=== PATIENT | female | born 1950 | race Caucasian/White ===

== ENCOUNTER → 2022-08-31 | Day surgery (SDC) | payer MEDICARE ==
[~2022-08-31] MED LIST: ASPIRIN81 MG PO; CLOPIDOGREL75 MG PO; LIPITOR10 MG PO; LISINOPRIL5 MG PO; METOPROLOL SUCC25 MG PO; MONTELUKAST SOD10 MG PO; NEXIUM40 MG PO; OR PHACO EYE KIT ONE; PANTOPRAZOLE SO40 MG PO; PREOP PHACO EYE KIT ONE; PROZAC20 MG PO; SIMVASTATIN40 MG PO
[2022-08-31 11:32] VITALS: BP 136/76
== END | disposition home or self-care (01) ==
LOC: OR 09:16
PROVIDERS: ATTEND Ophthalmology
DX: H25.12 Age-related nuclear cataract, left eye (principal); M06.9 Rheumatoid arthritis, unspecified; M19.90 Unspecified osteoarthritis, unspecified site; G47.33 Obstructive sleep apnea (adult) (pediatric); K21.9 Gastro-esophageal reflux disease without esophagitis; Z88.1 Allergy status to other antibiotic agents; Z88.2 Allergy status to sulfonamides; Z79.02 Long term (current) use of antithrombotics/antiplatelets; Z79.82 Long term (current) use of aspirin; Z79.899 Other long term (current) drug therapy

== ENCOUNTER → 2022-09-28 | Day surgery (SDC) | payer MEDICARE ==
[2022-09-23 08:38] LABS: BASOPHILS % 0.5 % (0.0-1.0); EOSINOPHILS # (AUTO) 0.1 (0.0-0.4); HEMATOCRIT 41.4 % (34.2-44.1); HEMOGLOBIN 12.5 g/dL (12.0-16.0); LYMPHOCYTES # (AUTO) 1.4 (1.0-3.2); LYMPHOCYTES % 21.5 % (18.0-39.1); MEAN CORPUSCULAR HEMOGLOBIN 27.9 pg (28-32); MEAN CORPUSCULAR HGB CONC 30.2 g/dL (31-35); MEAN CORPUSCULAR VOLUME 92.4 fL (81-99); MONOCYTES # (AUTO) 0.4 (0.2-0.8); MONOCYTES % 6.2 % (4.4-11.3); NEUTROPHILS # (AUTO) 4.6 (2.1-6.9); NEUTROPHILS % 69.5 % (38.7-80.0); PLATELET COUNT 360 x10e3/uL (140-360); RED BLOOD COUNT 4.48 x10e6/uL (3.6-5.1); RED CELL DISTRIBUTION WIDTH 14.1 % (11.7-14.4)
[~2022-09-28] MED LIST changes: +FENTANYL CITRATE/PF 100MCG/2 ML INJ ONE; +MIDAZOLAM HCL 2 MG/2 ML VIAL ONE
[2022-09-28 11:00] VITALS: BP 139/71
== END | disposition home or self-care (01) ==
LOC: OR 07:38
PROVIDERS: ATTEND Ophthalmology
DX: H25.11 Age-related nuclear cataract, right eye (principal); Z01.812 Encounter for preprocedural laboratory examination; Z79.02 Long term (current) use of antithrombotics/antiplatelets; Z79.82 Long term (current) use of aspirin; Z79.899 Other long term (current) drug therapy
CPT/HCPCS: 36415; 66984; 85025; J2250; J3010; V2632